=== PATIENT | female | born 2000 | race African-American/Black ===

== ENCOUNTER 2020-02-09 03:06 | Emergency (ER) | payer SELFPAY ==
[~2020-02-09] VITALS: Ht 175.3 cm; Wt 64.0 kg
[2020-02-09] MEDS ORDERED: BACITRACIN ZINC OINT UDPKT TOP ONE (04:00)
[2020-02-09] MEDS ORDERED: KETOROLAC 30MG/ML VIAL IM ONE (04:00)
[2020-02-09 04:41] VITALS: BP 123/72
== END 2020-02-09 04:55 | disposition home or self-care (01) ==
LOC: ER 03:06
DX: S20.211A Contusion of right front wall of thorax, initial encounter (principal); S40.212A Abrasion of left shoulder, initial encounter; S40.812A Abrasion of left upper arm, initial encounter; V49.88XA Car occupant (driver) (passenger) injured in other specified transport accidents, initial encounter; Y93.89 Activity, other specified; Y92.89 Other specified places as the place of occurrence of the external cause; Y99.8 Other external cause status
CPT/HCPCS: 71045; 81025; 96372; 99283; J1885